=== PATIENT | male | born 1975 | race Caucasian/White ===

== ENCOUNTER 2016-08-17 08:13 | Emergency (ER) | payer BC, OTHER ==
[2016-08-17 08:35] VITALS: BP 139/72
--- NOTE | 2016-08-17 08:48 | EDM.PDOC ---
ED HPI GI/ABDOMINAL - General Chief Complaint: Abdominal Pain Stated Complaint: PAIN IN AB AND RECTUM Time Seen by Provider: 08/17/16 08:35 Source of Information: Reports: Patient History Limitations: Reports: No limitations - History of Present Illness INITIAL COMMENTS - FREE TEXT/NARRATIVE: This 41 yo male patient reports to the ED with a 2 day history of blood on his toilet paper when he wipes and a 1 day history of diffuse abdominal pain. The patient reports that he was constipated 3-4 days ago and since that time he has noticed the bleeding and abdominal pain. The patient has not been seen by his primary care facility at this time. The patient reports a history of hemorrhoids , but is currently not treating his hemorrhoids. Symptom Onset Date: 08/15/16 Timing/Duration: Reports: Constant Location: other (intermittent lower abdominal cramping and blood on toilet paper when he wipes) Quality: Reports: cramping Severity: mild Worsens with: Reports: defecating Associated Symptoms: Reports: constipation (3-4 days ago), diarrhea (normally loose bowel movements), bloody stools (blood on the toilet paper) - Related Data Allergies/ADRs: Allergies Allergy/AdvReac Type Severity Reaction Status Date / Time No Known Allergies Allergy Verified 08/17/16 08:20 Home Meds: Home Meds Lisinopril [Prinivil] 1 tab PO DAILY 08/17/16 [History] Methylphenidate HCl [Methylphenidate HCl Cd] 1 tab PO DAILY 08/17/16 [History] Methylphenidate HCl [Methylphenidate HCl Cd] 10 mg PO DAILY 08/17/16 [History] Simvastatin [Zocor] 1 tab PO DAILY 08/17/16 [History] glipiZIDE [Glucotrol XL] 1 tab PO DAILY 08/17/16 [History] metFORMIN HCl [Glucophage] 1 tab PO BID 08/17/16 [History] Social & Family History - Tobacco Use Smoking Status *Q: Never Smoker Second Hand Smoke Exposure: No - Caffeine Use Caffeine Use: Reports: Soda - Recreational Drug Use Recreational Drug Use: No ED ROS GENERAL - Review of Systems Review Of Systems: See Below Constitutional: Reports: no symptoms HEENT: Reports: No symptoms Respiratory: Reports: no symptoms Cardiovascular: Reports: No symptoms Endocrine: Reports: no symptoms GI/Abdominal: Reports: Abdominal pain (intermittent cramping), Hematochezia ( blood on the toilet paper) : Reports: no symptoms Musculoskeletal: Reports: no symptoms Skin: Reports: no symptoms Neurological: Reports: no symptoms Psychiatric: Reports: No symptoms Hematologic/Lymphatic: Reports: no symptoms Immunologic: Reports: no symptoms ED EXAM, GI/ABD - Physical Exam Exam: See Below Exam Limited By: No limitations General Appearance: alert, WD/WN, anxious, moderate distress, obese Eyes: bilateral: normal appearance, EOMI Ears: normal external exam, normal canal, hearing grossly normal, normal TMs Nose: normal inspection, normal mucosa, no blood Throat/Mouth: Normal inspection, Normal lips, Normal teeth, Normal gums, Normal oropharynx, Normal voice, No airway compromise Head: atraumatic, normocephalic Neck: normal inspection, supple, non-tender, full range of motion Respiratory/Chest: no respiratory distress, lungs clear, normal breath sounds, no accessory muscle use, chest non-tender Cardiovascular: normal peripheral pulses, regular rate, rhythm, no edema, no gallop, no JVD, no murmur, no rub GI/Abdominal: normal bowel sounds, soft, non tender, no organomegaly, no distention, no abnormal bruit, no mass, other (morbid obesity ) (Male) Exam: Deferred Rectal (Males) Exam: Normal rectal tone, Prostate normal, Hemorrhoids (The patient has a thrombosed external hemorrhoid on the left of his rectum with a small amount of bleeding and clot formation.) Back Exam: normal inspection, full range of motion, NT Extremities: normal inspection, normal range of motion, non-tender, normal capillary refill, no pedal edema Neurological: alert, oriented, CN II-XII intact, normal cognition, normal gait, normal reflexes, no motor/sensory deficits Psychiatric: normal affect, normal mood Skin Exam: Warm, Dry, Intact, Normal color, No rash Lymphatic: no adenopathy Course - Vital Signs Last Recorded V/S: Last Vital Signs Temp 36.4 C 08/17/16 08:34 Pulse 88 08/17/16 08:34 Resp 20 08/17/16 08:34 BP 139/72 08/17/16 08:34 Pulse Ox 100 08/17/16 08:34 - Orders/Labs/Meds Orders: Active Orders 24 hr Category Date Time Status COMPREHENSIVE METABOLIC PN,CMP [CHEM] Urgent Lab 08/17/16 08:40 Ordered Labs: Laboratory Tests 08/17/16 Range/Units 08:48 WBC 12.7 H (5.0-10.0) 10^3/uL RBC 5.32 (4.6-6.2) 10^6/uL Hgb 14.1 (14.0-18.0) g/dL Hct 43.8 (40.0-54.0) % MCV 82.3 (80-100) fL MCH 26.5 L (27.0-34.0) pg MCHC 32.2 L (33.0-35.0) g/dL Plt Count 334 (150-450) 10^3/uL Neut % (Auto) 65.8 (42.2-75.2) % Lymph % (Auto) 26.3 (20.5-50.1) % [place] % (Auto) 7.0 (2-8) % Eos % (Auto) 0.6 L (1.0-3.0) % Baso % (Auto) 0.3 (0.0-1.0) % Departure - Departure Time of Disposition: 09:10 Disposition: Home, Self-Care 01 Condition: fair Clinical Impression: Hemorrhoid thrombosis Instructions: Hemorrhoids, [id number], How to Take a Sitz Bath Forms: ED Department Discharge Care Plan Goals: The patient was advised of the examination and lab results during the visit. The patient was encouraged to use medicated hemorrhoid wipes as well as to use Preparation H ointment 2-3 times per day for the next 3 months. The patient was also encouraged to take Sitz baths to help reduce the swelling and contamination of the area. The patient should follow-up with his primary care facility in approximately 1 week. If the patient has any additional symptoms or further concerns, the patient should follow-up with his primary care facility or return to the emergency department. - My Orders Last 24 Hours: My Active Orders 08/17/16 08:40 COMPREHENSIVE METABOLIC PN,CMP [CHEM] Urgent - Assessment/Plan Last 24 Hours: My Active Orders 08/17/16 08:40 COMPREHENSIVE METABOLIC PN,CMP [CHEM] Urgent
[2016-08-17 09:14] LABS: CHLORIDE,CL 98 mmol/L (101-111); SODIUM,NA 135 mmol/L (135-145)
== END 2016-08-17 09:20 | disposition home or self-care (01) ==
LOC: DL.ED 08:13
DX: K64.5 Perianal venous thrombosis (principal); Z79.84 Long term (current) use of oral hypoglycemic drugs; Z79.899 Other long term (current) drug therapy
CPT/HCPCS: 36415; 80053; 85025; 99282